=== PATIENT | female | born 1940 | race Caucasian/White ===

== ENCOUNTER → 2018-04-08 | Outpatient (CLI) | payer OTHER ==
[~2018-04-08] MED LIST: ACID CONTROL20 MG PO; ALBUTEROL SULF8.5 GM IH; ALLEGRA180 MG PO; AMITRIPTYLINE H50 M2 PO; AVELOX 400 MG400 M1 PO; BENAZEPRIL HCL10 MG PO; CATAPRES PO; CIPRO250 M1 PO; CIPROFLOXACIN500 M1; CLEOCIN HCL150 MG PO; CLONIDINE0.1 PO; DILAUDID2 M1 PO; FENTANYL 1100 MCG/HR TP; FENTANYL PA50 MCG/HR; FENTANYL PATCH75 MCG TP; FLAGYL500 MG PO; FLEXERIL PO; FUROSEMIDE 20 M20 M1 PO; GENTAMICIN OPH3.5 G1 OPHTHALMIC; GLUCOPHAGE500 MG PO; HYDROCODON-ACE1 EAC7 PO; HYDROCODONE-AP1 EAC6 PO; HYDROXYZINE HCL25 M1 PO; HYDROXYZINE HCL25 M2; KEFLEX500 MG PO; KLOR-CON 1010 MEQ PO; KLOR-CON20 MEQ PO; LEVOTHYROXINE0.05 MG PO; LORTAB 5 MG/5001 TAB PO; MEDROL DOSPAK21 TA1 PO; MELOXICAM7.5 MG; MELOXICAM7.5 MG PO; METFORMIN 500500 MG PO; NIFEDIPINE ER60 M1 PO; NORCO 5-325 TA1 EACH PO; NORCO 7.5-3251 EACH PO; OMEPRAZOLE PO; OXYCODONE HCL5 M1 PO; OXYCONTIN10 MG PO; PERCOCET 5-3251 EACH PO; POTASSIUM20 PO; PREDNISONE 10 M10 MG PO; PRENATAL PLUS1 EAC1 PO; PRENATAL PO; RANITIDINE 150150 M1 PO; RESTORIL15 M1 PO; RESTORIL15 MG PO; TESSALON PERLE100 MG PO; TRIAMCINOLONE A80 G2 TOP; TRIAMTERENE-HC1 EAC1 PO; ULTRAM 50MG TAB50 MG PO; VENTOLIN HFA INH8 GM IH; VITAMIN D400 UNI4; VITAMINC500 PO; XOPENEX HF1 UDINHALE IH; XOPENEX0.63 MG/3; ZOCOR 20 MG TAB20 M1 PO; ZOCOR 20 MG TAB20 MG PO; ZPAK PO; [UNRECOGNIZED DRUG - REMARK]
--- NOTE | 2018-04-08 17:42 | 2DMMODE ---
[place] [address] 2 D/M-MODE ECHOCARDIOGRAM Name: ALONZO ALVAREZ Room: [facility]#: [id number] Admission: 04/08/18 Attend Phys: GADIEL RIVERS Discharge: Date of : 44 Date of Service: 04/08/18 1742 Report #: [id number] THIS REPORT FOR: //name// APPROVED REPORT Study performed: 04/08/2018 14:36:02 EXAM: Comprehensive 2D, Doppler, and color-flow Echocardiogram Patient Location: Out-Patient Status: routine BSA: 1.55 HR: 88 bpm BP: 120/71 mmHg Other Information Study Quality: Good Indications Abnormal ECG 2D Dimensions LVEF(%): 62.14 (>50%) IVSd: 9.84 (7-11mm) LVOT Diam: 20.73 (18-24mm) LVDd: 37.74 mm PWd: 10.36 (7-11mm) Ascending Ao: 30.85 (22-36mm) LVDs: 25.33 (25-40mm) Aortic Root: 30.26 mm Welsh's LVEF: 62.14 % Volumes Left Atrial Volume (Systole) LA ESV Index: 23.00 mL/m2 Aortic Valve AoV Peak Roman.: 1.41 m/s AO Peak Gr.: 7.97 mmHg LVOT Max P.92 mmHg AO Mean Gr.: 4.48 mmHg LVOT Mean P.38 mmHg LVOT Max V: 0.85 m/s AO V2 VTI: 26.79 cm LVOT Mean V: 0.54 m/s ANITRA (VTI): 2.47 cm2 LVOT V1 VTI: 19.60 cm Mitral Valve E/A Ratio: 0.59 MV Decel. Time: 229.99 [place] [address] 2 D/M-MODE ECHOCARDIOGRAM Name: ALONZO ALVAREZ Room: [facility]#: [id number] Admission: 04/08/18 Attend Phys: GADIEL RIVERS Discharge: Date of : 44 Date of Service: 04/08/18 174 Report #: [id number] MV E Max Roman.: 0.62 m/s MV PHT: 66.70 ms MVA (PHT): 3.30 cm2 TDI E/Lateral E': 12.40 E/Medial E': 12.40 Medial E' Roman.: 0.05 m/s Lateral E' Roman.: 0.05 m/s Pulmonary Valve PV Peak Roman.: 0.80 m/s PV Peak Gr.: 2.56 mmHg Tricuspid Valve RAP Estimate: 5.00 mmHg TR Peak Gr.: 21.34 mmHg RVSP: 26.34 mmHg PA Pressure: 26.34 mmHg Left Ventricle The left ventricle is normal size. There is normal LV segmental wall motion. There is normal left ventricular wall thickness. Left ventricular systolic function is normal. LVEF is 55-60%. Grade I - abnormal relaxation pattern. Right Ventricle The right ventricle is normal size. The right ventricular systolic function is normal. Atria The left atrium size is normal. The right atrium size is normal. Aortic Valve Aortic valve is mildly calcified. No aortic regurgitation is present. There is no aortic valvular stenosis. Mitral Valve There is mild mitral annular calcification. Mild mitral regurgitation. No evidence of mitral valve stenosis. Tricuspid Valve The tricuspid valve is normal in structure. Mild tricuspid regurgitation. The RVSP is 30-35 mmHg. Pulmonic Valve The pulmonary valve is normal in structure. There is no pulmonic [place] [address] 2 D/M-MODE ECHOCARDIOGRAM Name: ALONZO ALVAREZ Amina Room: [facility]#: [id number] Admission: 04/08/18 Attend Phys: GADIEL RIVERS Discharge: Date of : 44 Date of Service: 04/08/18 1742 Report #: [id number] Great Vessels The aortic root is normal in size. IVC is normal in size and collapses with >50% inspiration Pericardium There is no pericardial effusion. <Conclusion> The left ventricle is normal size. There is normal left ventricular wall thickness. Left ventricular systolic function is normal. LVEF is 55-60%. Grade I - abnormal relaxation pattern. Aortic valve is mildly calcified. There is no aortic valvular stenosis. There is mild mitral annular calcification. Mild mitral regurgitation. Mild tricuspid regurgitation. The RVSP is 30-35 mmHg. IVC is normal in size and collapses with >50% inspiration <ELECTRONICALLY SIGNED> By: Tan Menezes MD, FACC 04/08/181741 41 41 Tan Menezes MD, FACC /INF
== END ==
LOC: M.CRD 14:00
DX: I08.1 Rheumatic disorders of both mitral and tricuspid valves (principal); Z78.0 Asymptomatic menopausal state

== ENCOUNTER → 2018-04-30 | Outpatient (CLI) | payer OTHER, MEDICAID | LOC: M.MRI 03-13 14:54 → M.CT 03-18 16:00 → M.MRI 04-14 14:30 → M.CT 04-14 16:00 → M.RAD 04-17 08:30 → M.MRI 04-17 08:30 → M.CT 13:00 → M.MRI 14:30 | DX: I67.82 Cerebral ischemia (principal); J47.9 Bronchiectasis, uncomplicated; M81.0 Age-related osteoporosis without current pathological fracture; I25.10 Atherosclerotic heart disease of native coronary artery without angina pectoris; M47.814 Spondylosis without myelopathy or radiculopathy, thoracic region; I35.8 Other nonrheumatic aortic valve disorders; J98.4 Other disorders of lung; R91.1 Solitary pulmonary nodule; R91.8 Other nonspecific abnormal finding of lung field; R42 Dizziness and giddiness; Z78.0 Asymptomatic menopausal state ==

== ENCOUNTER 2019-05-10 16:03 | Emergency (ER) | payer OTHER, MEDICAID ==
[~2019-05-10] VITALS: Ht 160 cm; Wt 59.4 kg
[2019-05-10] MEDS ORDERED: TRAZODONE HCL50 MG PO (16:17)
[2019-05-10] MEDS ORDERED: FOLIC ACID1 MG PO (16:18)
[2019-05-10] MEDS ORDERED: VIBERZI75 MG PO (16:18)
[2019-05-10] MEDS ORDERED: MOBIC15 MG PO (16:19)
[2019-05-10] MEDS ORDERED: VITAMIN B122500 MCG PO (16:20)
[2019-05-10] MEDS ORDERED: VITAMIN D1000 UNI1 PO (16:21)
[2019-05-10] MEDS ORDERED: FOSAMAX 70 MG T70 MG PO (16:21)
[2019-05-10 16:23] LABS: ABSOLUTE EOSINOPHILS 0.1 thou/uL (0.0-0.7); ABSOLUTE MONOCYTES 0.3 thou/uL (0.0-1.2); ABSOLUTE NEUTROPHILS 2.1 thou/uL (1.6-8.1); BASOPHILS 0.7 %; EOSINOPHILS 2.4 %; HEMATOCRIT 37.6 % (37.0-47.0); HEMOGLOBIN 12.5 gm/dL (12.0-15.0); LYMPHOCYTES 42.8 %; MCH 29.7 pg (26.0-34.0); MCHC 33.1 g/dL (28.0-37.0); MCV 89.5 fL (80.0-100.0); MONOCYTES 7.6 %; MPV 9.3 fl. (7.2-11.1); NUCLEATED RBCS 0 /100WBC; PLATELET COUNT* 145 thou/uL (150-400); POLYS 46.5 %; RDW-CV 13.5 % (10.5-14.5); WBC 4.6 thou/uL (4.0-11.0)
[2019-05-10 16:31] LABS: PROTIME 10.3 Seconds (9.20-11.50)
[2019-05-10 16:54] LABS: ALBUMIN 3.7 g/dL (3.4-5.0); ALKALINE PHOSPHATASE 64 U/L (46-116); ANION GAP 8 mmol/L (7-16); BUN 15 mg/dL (7-18); CALCIUM 8.7 mg/dL (8.5-10.1); CHLORIDE 105 mmol/L (98-107); CO2 25 mmol/L (21-32); CREATININE 1.2 mg/dL (0.6-1.3); GLUCOSE 121 mg/dL (70-99); LIPASE 99 U/L (73-393); NT-PRO BRAIN NAT PEPTIDE 194 pg/mL (<300); POTASSIUM 4.2 mmol/L (3.5-5.1); SGOT 15 U/L (15-37); SGPT 19 U/L (30-65); SODIUM 138 mmol/L (136-145); TOTAL BILIRUBIN 0.3 mg/dL (<0.1-1.0); TOTAL PROTEIN 7.4 g/dL (6.4-8.2); TROPONIN-I LEVEL <0.06 ng/mL (<0.06)
[2019-05-10 18:14] VITALS: BP 162/93
--- NOTE | 2019-05-11 17:04 | EKG ---
[place] [address] ELECTROCARDIOGRAM REPORT Name: ALONZO ALVAREZ Room: [facility]#: [id number] Admission: 05/10/19 Attend Phys: Discharge: 05/10/19 Date of : 44 Report #: [id number] THIS REPORT FOR: //name// [facility] ED Test Date: 2019-05-10 Test Time: 16:11:57 Pat Name: ALONZO ALVAREZ Department: Room: Gender: F [employer]ing Trimmer: GROVER : 1940 Requested By: Ben Reyez Order Number: [id number] MD: Christopher Thomas Measurements Intervals [place] Rate: 97 P: 24 ND: 168 QRS: -40 QRSD: 117 T: 60 QT: 346 QTc: 440 Interpretive Statements Sinus rhythm Nonspecific IVCD with LAD Left ventricular hypertrophy Compared to ECG 08/17/2012 20:33:32 no change Electronically Signed On 05-11-2019 17:04:27 CDT by Christopher Thomas [email or web address] <ELECTRONICALLY SIGNED> By: Christopher Thomas MD, [facility] 05/11/19 1704 10 10 Christopher Thomas MD, FACC /EPI
== END 2019-05-10 18:14 | disposition home or self-care (01) ==
LOC: M.ERS 16:03
PROVIDERS: Emergency Medicine
DX: R42 Dizziness and giddiness (principal); E11.9 Type 2 diabetes mellitus without complications; E03.9 Hypothyroidism, unspecified; I25.2 Old myocardial infarction; M32.9 Systemic lupus erythematosus, unspecified; Z98.890 Other specified postprocedural states; Z86.73 Personal history of transient ischemic attack (TIA), and cerebral infarction without residual deficits; Z88.2 Allergy status to sulfonamides; Z88.6 Allergy status to analgesic agent; Z88.5 Allergy status to narcotic agent; Z88.7 Allergy status to serum and vaccine; Z88.1 Allergy status to other antibiotic agents; Z88.8 Allergy status to other drugs, medicaments and biological substances

== ENCOUNTER → 2019-06-22 | Outpatient (CLI) | payer OTHER, MEDICAID ==
[~2019-06-22] MED LIST changes: +FOLIC ACID1 MG PO; +FOSAMAX 70 MG T70 MG PO; +MOBIC15 MG PO; +TRAMADOL 50 MG50 MG PO; +TRAZODONE HCL50 MG PO; +VIBERZI75 MG PO; +VITAMIN B122500 MCG PO; +VITAMIN D1000 UNI1 PO
== END ==
LOC: M.ULTRA 13:30
DX: M79.604 Pain in right leg (principal); M79.89 Other specified soft tissue disorders

== ENCOUNTER 2019-06-28 18:58 | Emergency (ER) | payer OTHER, MEDICAID ==
[~2019-06-28] VITALS: Ht 154.9 cm; Wt 61.2 kg
[~2019-06-28 18:58] MED LIST changes: -TRAMADOL 50 MG50 MG PO
[2019-06-28] MEDS ORDERED: TRAMADOL 50 MG50 MG PO (19:20)
[2019-06-28 19:35] VITALS: BP 181/98
== END 2019-06-28 19:35 | disposition home or self-care (01) ==
LOC: M.ERS 18:58
DX: M25.50 Pain in unspecified joint (principal); M32.9 Systemic lupus erythematosus, unspecified; Z76.0 Encounter for issue of repeat prescription; E11.9 Type 2 diabetes mellitus without complications; I25.2 Old myocardial infarction; E03.9 Hypothyroidism, unspecified; M06.9 Rheumatoid arthritis, unspecified; Z98.890 Other specified postprocedural states; Z88.2 Allergy status to sulfonamides; Z88.6 Allergy status to analgesic agent; Z88.7 Allergy status to serum and vaccine; Z88.8 Allergy status to other drugs, medicaments and biological substances